=== PATIENT | male | born 1995 | race Hispanic/Latino ===

== ENCOUNTER 2023-10-10 08:13 | Outpatient (CLI) | payer OTHER, SELFPAY ==
--- NOTE | ~2023-10-10 | MMUS_ITS ---
EXAMINATION: MM diagnostic mikayla LT w linda, US breast LT limited HISTORY: Breast mass in male TECHNIQUE: Craniocaudal and mediolateral oblique 3-D tomosynthesis images of the left breast were per formed and synthetic 2-D images were generated. Mediolateral oblique 3-D tomosynthesis images of the right breast is obtained for comparison. CAD analysis was submitted and interpreted. High resolution limited left breast ultrasound was performed. COMPARISON: No prior mammogram is currently available for comparison. BREAST PARENCHYMAL COMPOSITION: The breasts are almost entirely fatty. FINDINGS: MAMMOGRAPHIC FINDINGS: There is focal asymmetry in the subareolar aspect of the left breast with interspersed fat. No suspic ious mass, calcification, or architectural distortion are identified. ULTRASOUND: There is no evidence of focal abnormal solid or cystic mass in the vicinity of the reported palpable abnormality of concern. IMPRESSION: 1. Findings consistent with asymmetric gynecomastia of the left breast. Clinical follow-up is recomme nded. BI-RADS Category 2: Benign finding(s). Reviewed, dictated and finalized at location A. JOINER IMPRESSION: 1. Findings consistent with asymmetric gynecomastia of the left breast. Clinica l follow-up is recommended. BI-RADS Category 2: Benign finding(s).
== END 2023-10-10 08:14 ==
PROVIDERS: PCP Family Medicine Sports Medicine; Visit Provider Family Medicine Sports Medicine
DX: N63.0 Unspecified lump in unspecified breast (principal); N62 Hypertrophy of breast
CPT/HCPCS: 76642; 77061; 77065; G0279